=== PATIENT | female | born 1985 | race Caucasian/White ===

== ENCOUNTER 2018-12-05 16:19 | Emergency (ER) | payer MEDICAID, OTHER ==
[~2018-12-05] VITALS: Ht 165.1 cm; Wt 92.9 kg
[2018-12-05 16:23] VITALS: Ht 165.1 cm; Wt 92.9 kg
[2018-12-05] MEDS ORDERED: ONDANSETRON (ODT) 4 MG TAB ODT STA (16:47)
[2018-12-05] MEDS ORDERED: ACETAMINOPHEN 325 MG TAB PO ONE (17:00)
[2018-12-05] MEDS ORDERED: BISM262O23 PO (18:17)
[2018-12-05] MEDS ORDERED: ACET500C5 PO (18:17)
[2018-12-05] MEDS ORDERED: ONDA8TAB14 PO (18:17)
--- NOTE | 2018-12-05 18:20 | ERD ---
ER Documentation Chief Complaint Chief Complaint ap with n/v started today. saw scant amt of blood in the vomit today HPI 33-year-old female presents with vomiting diarrhea and epigastric pain starting today. She denies . She denies measured fevers. She denies any right-sided abdominal pain or lower abdominal pain. She denies any urinary complaints. ROS All systems reviewed and are negative except as per history of present illness. Medications Home Meds Active Scripts Bismuth Subsalicylate* (Pepto-Bismol*) 262 Mg/15 Ml Oral.susp, 15 ML PO Q3H PRN for DIARRHEA for 4 Days, ML Prov:JIMMY CÁRDENAS MD 12/05/18 Acetaminophen* (Tylophen*) 500 Mg Capsule, 1 CAP PO Q6H PRN for PAIN AND OR ELEVATED TEMP, #15 CAP Prov:JIMMY CÁRDENAS MD 12/05/18 Ondansetron (Ondansetron Odt) 8 Mg Tab.rapdis, 8 MG PO Q6H PRN for NAUSEA AND/OR VOMITING, #8 TAB Prov:JIMMY CÁRDENAS MD 12/05/18 Allergies Allergies: Coded Allergies: No Known Allergy (Unverified , 12/05/18) PMhx/Soc Medical and Surgical Hx: pt denies Medical Hx, pt denies Surgical Hx Physical Exam Vitals Vital Signs Date Temp Pulse Resp B/P (MAP) Pulse Ox O2 O2 Flow FiO2 Time Delivery Rate 12/05/18 97.3 89 18 131/75 99 16:23 (93) Physical Exam Const: No acute distress. Well-appearing. Head: Atraumatic Eyes: Normal Conjunctiva ENT: Normal External Ears, Nose and Mouth. Neck: Full range of motion. No meningismus. Resp: Clear to auscultation bilaterally Cardio: Regular rate and rhythm, no murmurs Abd: Soft, non tender, non distended. Normal bowel sounds Skin: No petechiae or rashes Back: No midline or flank tenderness Ext: No cyanosis, or edema Neur: Awake and alert Psych: Normal Mood and Affect Result Diagram: 12/05/18 1702 12/05/18 1702 Results 24 hrs Laboratory Tests Test 12/05/18 17:02 12/05/18 17:14 White Blood Count 6.8 10^3/ul Red Blood Count 4.76 10^6/ul Hemoglobin 12.8 g/dl Hematocrit 40.3 % Mean Corpuscular Volume 84.7 fl Mean Corpuscular Hemoglobin 26.9 pg Mean Corpuscular Hemoglobin Concent 31.8 g/dl Red Cell Distribution Width 13.0 % Platelet Count 244 10^3/UL Mean Platelet Volume 11.1 fl Immature Granulocytes % 0.300 % Neutrophils % 71.8 % Lymphocytes % 19.7 % Monocytes % 5.3 % Eosinophils % 2.5 % Basophils % 0.4 % Nucleated Red Blood Cells % 0.0 /100WBC Immature Granulocytes # 0.020 10^3/ul Neutrophils # 4.9 10^3/ul Lymphocytes # 1.4 10^3/ul Monocytes # 0.4 10^3/ul Eosinophils # 0.2 10^3/ul Basophils # 0.0 10^3/ul Nucleated Red Blood Cells # 0.0 10^3/ul Urine Color YELLOW Urine Clarity CLEAR Urine pH 6.0 Urine Specific Newberg 1.023 Urine Ketones NEGATIVE mg/dL Urine Nitrite NEGATIVE mg/dL Urine Bilirubin NEGATIVE mg/dL Urine Urobilinogen 1+ mg/dL Urine Leukocyte Esterase TRACE Ledy/ul Urine Microscopic RBC 5 /HPF Urine Microscopic WBC 4 /HPF Urine Squamous Epithelial Cells FEW /HPF Urine Mucus FEW /HPF Urine Hemoglobin 2+ mg/dL Urine Glucose NEGATIVE mg/dL Urine Total Protein NEGATIVE mg/dl Sodium Level 142 mmol/L Potassium Level 3.5 mmol/L Chloride Level 106 mmol/L Carbon Dioxide Level 25 mmol/L Anion Gap 11 Blood Urea Nitrogen 14 mg/dl Creatinine 0.79 mg/dl Est Glomerular Filtrat Rate mL/min > 60 mL/min Glucose Level 93 mg/dl Calcium Level 9.8 mg/dl Total Bilirubin 0.2 mg/dl Direct Bilirubin 0.00 mg/dl Indirect Bilirubin 0.2 mg/dl Aspartate Amino Transf (AST/SGOT) 31 IU/L Alanine Aminotransferase (ALT/SGPT) 20 IU/L Alkaline Phosphatase 92 IU/L Total Protein 8.3 g/dl Albumin 4.6 g/dl Globulin 3.70 g/dl Albumin/Globulin Ratio 1.24 Lipase 48 U/L POC Beta HCG, Qualitative NEGATIVE Current Medications Medications Dose Sig/Moses Start Time Status Last (Trade) Ordered Route PRN Stop Time Admin Dose Reason Admin Ondansetron 8 mg ONCE STAT 12/05/18 DC 12/05/18 HCl (Zofran ODT 16:47 12/05/18 17:04 Odt) 16:48 650 mg ONCE ONCE 12/05/18 DC 12/05/18 Acetaminophen PO 17:00 12/05/18 17:04 (Tylenol 17:01 Tab) Procedures/MDM Patient was given Zofran and Tylenol. CBC and CMP shows no acute abnormalities. Urine shows no significant signs of infection. HCG is negative. Patient had no vomiting throughout the ER course. Prescription presents with vomiting diarrhea and epigastric pain consistent most likely with early gastrointestinal virus. Current signs or symptoms do not suggest surgical abdomen, appendicitis, hepatobiliary disease. She will be treated with Zofran, Tylenol, return precautions the next day for lower abdominal pain, symptoms of appendicitis, additional new or worsening symptoms. She will otherwise be recommended to rule out acute self-limited viral illness to resolve. The patient was stable with no new complaints during the ER course. Clinically, there is no current evidence to suggest meningitis, sepsis, acute abdomen, pneumonia, stroke, acute coronary syndrome, pulmonary embolism, aortic dissection or any other emergent condition appearing to require further evaluation or hospitalization. Patient counseled regarding my diagnostic impression and care plan. Prior to discharge all questions answered. Pt agrees with treatment plan and understands strict return precautions. Pt is instructed to follow up with primary care provider within 24- 48 hours. Precautionary instructions provided including instructions to return to the ER if not improving or for any worsening or changing symptoms or concerns. Departure Diagnosis: Primary Impression: Nausea, vomiting and diarrhea Condition: Stable Patient Instructions: Abdominal Pain, Unknown Cause, (Female), Vomiting And Diarrhea, Nonspecific (Adult) Additional Instructions: Probablamente un virus que dura 2-4 kim. cheque otro vez en el proximo kathrin para mas simptomas- vomito, dolor, chad, problemas con respirando, o con griffin doctor primario. Horita los examines dice no tiene appendicits o emferma mal, landen es importante coma esta en el proximo kathrin. chequ 8-12 horas par mas dolor, especialamente derecho y abajo vomito , fiebre, nueva simptomas. JIMMY CÁRDENAS MD Dec 05, 2018 18:20
== END 2018-12-05 18:43 | disposition home or self-care (01) ==
LOC: FTE 16:19
DX: R11.2 Nausea with vomiting, unspecified (principal); R19.7 Diarrhea, unspecified
CPT/HCPCS: 36415; 80053; 81001; 81025; 83690; 85025; Z7502; Z7610; 99283